=== PATIENT | female | born 1975 ===

== ENCOUNTER 2024-12-19 06:00 | Day surgery (SDC) | payer OTHER ==
[2024-12-13 11:26] LABS: BASO % 1.7 % (0.1-1.2); EOS # 0.07 (0.04-0.54); EOS % 1.3 % (0.7-7.0); LYMPH # 1.88 (1.18-3.74); LYMPH % 35.5 % (19.3-53.1); MEAN PLATELET VOLUME 9.00 fl (9.4-12.4); MONO # 0.49 (0.24-0.82); MONO % 9.3 % (4.7-12.5); NEUT # 2.75 (1.56-6.13); NEUT % 52.0 % (34.0-71.1); RED CELL DISTRIBUTION WIDTH 16.4 % (11.6-14.4)
[2024-12-13 11:37] LABS: URINE APPEARANCE Clear; URINE BILIRRUBIN Negative (NEGATIVE); URINE BLOOD Large; URINE COLOR Yellow; URINE GLUCOSE Negative (NEGATIVE); URINE KETONE 15 (NEGATIVE); URINE LEUKOCYTE Negative; URINE NITRATE Negative; URINE PROTEIN Negative (NEGATIVE); URINE UROBILINOGEN 0.2 E.U./dl
[2024-12-13 11:39] LABS: URINE BACTERIA 31.1 uL (0.0-1933); URINE EPITHELIAL CELLS 5.6 uL (0.0-38.8); URINE RBC 166.3 uL (0.0-20.8)
[2024-12-13 11:40] LABS: INR 1.11
[2024-12-13 11:49] LABS: URINE CAST 0.43 uL (0.0-1.40); URINE WBC 1.3 uL (0.0-23.2)
[2024-12-13 12:09] LABS: ALT/SGPT 16.0 U/L (12-78); AST/SGOT 11.0 U/L (15-37); BILIRUBIN TOTAL 0.36 mg/dL (0.3-1.2); BUN CREA RATIO 14.0 (7.0-25.0); CREATININE SERUM 0.76 mg/dL (0.55-1.02); GFR 80.23; GLOBULINA 3.9 G/DL (2.4-3.5); GLUCOSE FASTING 85.0 mg/dL (65-100); OSMOLALITY SERUM 280.0 MOSM/KG (275-295); TSH 0.943 uIU/mL (0.358-3.74)
[~2024-12-19 06:00] MED LIST: GRALISE600 MG
[2024-12-19] MEDS ORDERED: CEFOXITIN SODIUM 2,000 MG VIAL IV ONE (06:20)
[2024-12-19] MEDS ORDERED: SUGAMMADEX SODIUM 200 MG/2 ML VIAL IV ONE (09:14)
[2024-12-19] MEDS ORDERED: PROMETHAZINE HCL 50 MG/ML AMPUL IM ONE (10:00)
[2024-12-19] MEDS ORDERED: MONDOXYNE NL100 MG PO (10:00)
[2024-12-19] MEDS ORDERED: Tylenol #3 PO (10:00)
[2024-12-19] MEDS ORDERED: NAPR500T14 PO (10:00)
== END 2024-12-19 13:50 | disposition home or self-care (01) ==
LOC: CIR.AMB 06:00
PROVIDERS: ATTEND Obstetrics & Gynecology
DX: D39.11 Neoplasm of uncertain behavior of right ovary (principal); D39.8 Neoplasm of uncertain behavior of other specified female genital organs; D25.0 Submucous leiomyoma of uterus; N84.0 Polyp of corpus uteri; Z91.0110 Allergy to milk products, unspecified